=== PATIENT | male | born 1970 | race Caucasian/White ===

== ENCOUNTER 2016-12-10 11:46 | Day surgery (SDC) | payer OTHER ==
[~2016-12-10] VITALS: Ht 185.4 cm; Wt 170.6 kg
[~2016-12-10 11:46] MED LIST: ARTHRICREAM85 GM TP; ATARAX-DPS25 MG PO; BUSPAR DPS15 MG PO; CYANOCOBAL1000 MCG/1 SQ; ELIQUIS5 MG PO; ISOPTIN DPS120 MG PO; ISOPTIN SR240 MG PO; LASIX DPS40 MG PO; MOBIC DPS7.5 MG PO; MONTELUKAST SOD10 MG PO; PRILOSEC DPS20 MG PO; RESTORIL DPS15 MG PO; SYMBICORT160 MCG/6 IH; SYMBICORT160 MCG/6 PO; TOPAMAX50 MG PO; TYLENOL DPS325 MG PO; ZANAFLEX4 MG PO; ZOCOR DPS20 MG PO; [UNRECOGNIZED DRUG - OTHER] PO
--- NOTE | 2017-01-23 18:23 | OR ---
ADMIT: 12/10/2016 RM/LOC: [facility] MR#: [id number] [address] [facility] [address], [place] [id number] JONI HOLLY [address] [address] [place] [address] Operative/Delivery Room Report SEX: M AGE: 46 : 1970 SURGERY DATE: 12/10/2016 SURGEON: Lalit Albrecht MD PROCEDURE: Implantation of dorsal column neurostimulator system. PREOPERATIVE DIAGNOSIS: 1. Lumbar radiculopathy. 2. Other chronic pain. POSTOPERATIVE DIAGNOSIS: 1. Lumbar radiculopathy. 2. Other chronic pain. PHYSICIAN ASSISTANT PSYCHIATRY: None. ESTIMATED BLOOD LOSS: Less than 20 ml. FLUOROSCOPY TIME: See Radiology records. NARRATIVE: Mr. Holly is a 46-year-old patient, who I see in the pain clinic in [place]. He has low back pain and leg radiculopathy that is intractable and quite severe. He has failed conservative management. Mr. Holly underwent a [employer] dual lead neurostimulator trial on October 30, 2016. He reported excellent relief (over 80% pain relief) with the trial and is here at [facility] today for permanent implant. I discussed the procedure with Mr. Holly in the preoperative holding area including the discussion with potential risk of bleeding and infection, and the remote possibility of spinal cord damage. He understands and wants to proceed and signed the consent. PROCEDURE IN DETAIL: Mr. Holly was given preoperative antibiotics and then taken to the operating room, where he was placed prone on the operating room table. His back, flanks, and buttocks were all prepped in the usual sterile fashion. A 1% lidocaine was injected into the skin over the L1-2 lumbar interspace. An incision was made down to the skin and electrocautery was used to dissect down to the supraspinous fascia. A 14-gauge Tuohy epidural needle was advanced through at the L1-2 level and angled so that the tip entered the epidural space through the T12-L1 interlaminar window. There was no paresthesia, bleeding, or CSF noted. An 80 cm, 8-contact [employer] neurostimulator lead was passed through the needle and observed under fluoroscopy until the tip of the lead reached the lower third of the 7th thoracic vertebrae just to the right of midline. A second 8-contact [employer] neurostimulator lead was then advanced using an identical technique, this time with a left paramedian approach. A second lead was advanced through the needle and positioned parallel to the first lead, just to the left of midline. The 2 leads span the lower third of the 7th thoracic vertebrae and all of the 8th thoracic vertebrae. A connector cable was connected to the leads and handed off to the [employer] safety representative who was present for the case. The ADMIT: 12/10/2016 RM/LOC: [facility] MR#: [id number] [address] [place] [id number] [place] [id number] Operative/Delivery Room Report SEX: M AGE: 46 : 1970 [employer] safety representative produced stimulation to create paresthesia in all of Mr. Holly's pain-generating areas. Once this was accomplished, the leads were secured with anchors in the base of the wound. A 1% lidocaine was injected into the skin of the left flank. An incision was made to the skin and sharp and blunt dissection was used to dissect into the subcutaneous tissues and blunt dissection was used to create a pocket subcutaneously sufficient to accept the [employer] neurostimulator pulse generator. A tunneling device was then used to tunnel from the back incision to the flank incision. The leads were passed through the tunneling device and secured to the pulse generator. Impedances were checked and found to be adequate. Both wounds were irrigated with antibiotic solution. The excess lead material was curled up underneath the pulse generator, and the pulse generator was placed into the pocket in the left flank. Both wounds were then closed in 2 layers with 2-0 and 3-0 Vicryl. The skin was approximated with skin christian. Sterile dressings were applied. I then placed Mr. Holly on prophylactic antibiotics to prevent any postoperative wound infection for the next 5 days. I am going to have him keep the wounds clean and dry and follow up in the clinic for a wound check in 1 week. Mr. Holly tolerated this procedure well and was taken to the recovery area in stable condition. Lalit Albrecht MD/ miguel JOB #: [id number] CC: Lalit Albrecht MD, Attending Physician Latonya Encinas MD, [facility]
== END 2016-12-10 18:43 | disposition home or self-care (01) ==
LOC: SSS
PROC: 0JH70MZ Insertion of Stimulator Generator into Back Subcutaneous Tissue and Fascia, Open Approach (ICD-10-PCS; principal; 2016-12-10)
PROC: 00HU3MZ Insertion of Neurostimulator Lead into Spinal Canal, Percutaneous Approach (ICD-10-PCS; principal; 2016-12-10)
DX: G89.29 Other chronic pain (principal); M96.1 Postlaminectomy syndrome, not elsewhere classified; M54.16 Radiculopathy, lumbar region; J45.909 Unspecified asthma, uncomplicated; G47.30 Sleep apnea, unspecified; I10 Essential (primary) hypertension; K21.9 Gastro-esophageal reflux disease without esophagitis; E66.9 Obesity, unspecified; M19.90 Unspecified osteoarthritis, unspecified site; F41.9 Anxiety disorder, unspecified; Z95.0 Presence of cardiac pacemaker; Z88.8 Allergy status to other drugs, medicaments and biological substances; Z79.899 Other long term (current) drug therapy; Z98.890 Other specified postprocedural states; Z90.49 Acquired absence of other specified parts of digestive tract; Z68.42 Body mass index [BMI] 45.0-49.9, adult